=== PATIENT | male | born 1990 | race Caucasian/White ===

== ENCOUNTER 2018-03-31 09:07 | Emergency (ER) | payer OTHER, SELFPAY ==
[2018-03-31 09:15] VITALS: BP 141/91; PULSE 78; RESP 16; TEMP 36.5; O2SAT 100
--- NOTE | 2018-03-31 10:00 | DI.RAD_ITS ---
SYMPTOMS/DIAGNOSIS: LACERATION, PAIN RIGHT THUMB: Soft tissue trauma is noted over the nail bed and tip of the right thumb. There is no evidence of a radiopaque foreign body. There is no evidence of a fracture or dislocation.
--- NOTE | 2018-03-31 10:06 | W.ED.GENAD ---
Discharge Plan Disposition Patient Disposition: [facility] Condition: Improving Discharge Details Chief Complaint: Laceration Clinical Impression: Laceration of right thumb Primary Care Provider: Unknown,Unknown ED Provider: Reno Brownlee Home Meds and New Rx's Prescriptions: Continue sennosides [senna] 8.6 mg Tablet 8.6 mg PO DAILY RF: 0 docusate sodium 100 mg Tablet 100 mg PO DAILY RF: 0 quetiapine 50 mg Tablet 150 mg PO DAILY PRN PRNRF: 0 buprenorphine-naloxone [Suboxone] 8-2 mg Film 1 film SUBLINGUAL DAILY RF: 0 psyllium husk [Metamucil] 0.4 gram Capsule 0.4 g PO DAILY PRN PRNRF: 0 Discharge Instructions Instructions: Laceration (ED) Additional Instructions: Instructions for correctional center: 2 nylon sutures placed. The dressing should remain intact for 48 hours and then may be changed by nurse. Sutures to be removed in 7-8 days Medical Decision Making 27-year-old right-handed male presents with a volar thumb laceration that does not violate the nail bed and does not demonstrate evidence of foreign body or motor/sensory loss. He is referred for x-ray to rule out foreign body or bone injury; this was negative. Wound anesthetized, explored in a bloodless field without evidence of foreign body, irrigated, closed with 2 interrupted nylon sutures. Instructions given to guards. Patient stable follow-up in, and discharged back to correctional center HPI General Date/Time Provider Initiated Documentation: 03/31/18 10:00. Limitations to Documentation: no limitations. Information obtained by: patient. History of Present Illness 27 year old M presents to the emergency department with the chief complaint of Right thumb laceration, tetanus up-to-date, described as moderate, Quality is described as aching, and is localized to the right and upper extremity. Patient reports no radiation. and it has been constant. No relieving factors improve symptom(s), No exacerbating factors reported . 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 Related Data Home Medications Medication Instructions Recorded Confirmed buprenorphine-naloxone [Suboxone] 1 film SUBLINGUAL DAILY 03/31/18 03/31/18 docusate sodium 100 mg PO DAILY 03/31/18 03/31/18 psyllium husk [Metamucil] 0.4 g PO DAILY PRN PRN 03/31/18 03/31/18 quetiapine 150 mg PO DAILY PRN PRN 03/31/18 03/31/18 sennosides [senna] 8.6 mg PO DAILY 03/31/18 03/31/18 Allergies Allergy/AdvReac Type Severity Reaction Status Date / Time No Known Allergies Allergy Unverified 03/31/18 09:20 General Stated Complaint: Laceration DAJA: 4 Review of Systems Review of Systems 8 systems reviewed and otherwise negative PFSH Social History Smoking/Tobacco Use Status: Former Tobacco Use Exam Narrative Exam Narrative: GEN: awake, alert, oriented 3. Pleasant, well groomed, interactive. HEAD: Normocephalic, atraumatic ENT: Mucous membranes moist, oropharynx unremarkable, External ear exam unremarkable EYES: PERRL, EOMI EXT: Full ROM, no edema, no rash right thumb palm R, volar aspect with laceration that originates lateral to the nail. No bone exposed. Sensation and motor intact including two-point discrimination of approximately 1 cm. Neuro: Grossly normal neurologic exam, conversant, interactive. Psych: Speech fluent, thoughts congruent, affect normal Course Vital Signs Temperature 36.5 C 03/31/18 09:15 Pulse 78 03/31/18 09:15 Respiratory Rate 16 03/31/18 09:15 Blood Pressure 141/91 H 03/31/18 09:15 Pulse Oximetry 100 03/31/18 09:15 Temperature 36.5 C 03/31/18 09:15 Temperature Source Temporal Artery Scan 03/31/18 09:15 Pulse 78 03/31/18 09:15 Respiratory Rate 16 03/31/18 09:15 Respiratory Effort Non-Labored 03/31/18 09:18 Blood Pressure 141/91 H 03/31/18 09:15 Blood Pressure Position Sitting 03/31/18 09:15 Pulse Oximetry 100 03/31/18 09:15 Oxygen Delivery Method Room Air 03/31/18 09:15 Oxygen Flow Rate 0 03/31/18 09:15 Pain Level 0 03/31/18 09:15 Procedures Laceration Laceration 1: Site: hand Side (If applicable): right Size (cm): 13.5 Description: linear Depth: simple, single layer Local Anesthetic: Lidocaine 1% and other anesthetic (Digital block with 1%) Amount of anesthesia used (mL): 1 Skin layer closed with: nylon Size (cm): 5-0 Number of sutures: 2 Technique: simple, interrupted
== END 2018-03-31 10:58 | disposition home or self-care (01) ==
PROVIDERS: Emergency Provider Emergency Medicine
DX: S61.011A Laceration without foreign body of right thumb without damage to nail, initial encounter (principal); W31.82XA Contact with other commercial machinery, initial encounter; Y92.140 Kitchen in prison as the place of occurrence of the external cause
CPT/HCPCS: 12001; 73140

== ENCOUNTER 2020-10-15 12:06 | Emergency (ER) | payer SELFPAY ==
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
[2020-10-15 12:32] VITALS: BP 140/88; PULSE 87; RESP 13; TEMP 37.1; O2SAT 99
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
[2020-10-15 13:44] LABS: Abs Immature Grans 0.03 10^3/uL (0.0-0.06); Absolute Eosinophil Count 0.04 10^3/uL (0.0-0.7); Absolute Lymphocyte Count 1.45 10^3/uL (1.2-3.4); Basophils % 1.2; Eosinophils % 0.5; HCT 44.7 % (40.0-50.0); HGB 14.9 g/dL (13.5-17.5); Immature Grans % 0.3; Lymphocytes % 16.8; MCH 29.9 pg (27.0-33.0); MCHC 33.3 % (32.0-36.0); MCV 89.8 fL (80-95); MPV 9.9 fL (8.0-11.0); Monocytes % 8.1; Neutrophils % 73.1; Nucleated RBC 0 %; Platelet Count 203 10^3/uL (130-400); RBC 4.98 10^6/uL (4.36-5.78); RDW 11.9 % (11.8-14.1); RDW-SD 39.3 fL; WBC 8.62 10^3/uL (4.4-10.8)
[2020-10-15] MEDS: Omnipaque 350 MG/ML 100 ML BTL IJ (13:46)
[2020-10-15] MEDS: Normal Saline - Diluent 50 ML VIAL IV (13:47)
[2020-10-15] MEDS: Normal Saline Flush 10 ML SYR IVP ×3 (13:48→15:08)
[2020-10-15 13:51] LABS: ALT 54 U/L (16-63); AST 51 U/L (15-37); Albumin 3.9 g/dL (3.4-5.0); Alkaline Phosphatase 57 U/L (46-116); Anion Gap 7.7 mmol/L (3-11); BUN 8 mg/dL (7-18); Bilirubin, Total 0.5 mg/dL (0.2-1.0); CO2 29.3 mmol/L (21.0-32.0); CREATININE 0.9 mg/dL (0.70-1.30); Calcium 8.9 mg/dL (8.5-10.1); Chloride 102 mmol/L (98-107); Glucose 100 mg/dL (74-106); Potassium 4.2 mmol/L (3.5-5.1); Sodium 139 mmol/L (136-145); Total Protein 7.9 g/dL (6.4-8.2)
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
[2020-10-15] MEDS: Acetaminophen 500 MG TAB 1000 MG PO (13:59)
[2020-10-15 14:00] VITALS: BP 149/105; PULSE 85; RESP 20; O2SAT 99
[2020-10-15] MEDS: HYDROmorphone 2 MG/ML VIAL 1 MG IVP (14:33)
[2020-10-15] MEDS: Ketorolac 30 MG/ML VIAL IVP (15:07)
[2020-10-15] MEDS: HYDROmorphone 2 MG TAB 4 MG PO (15:08)
== END 2020-10-15 15:26 | disposition home or self-care (01) ==
PROVIDERS: Emergency Provider Emergency Medicine
DX: S49.81XA Other specified injuries of right shoulder and upper arm, initial encounter (principal); V19.3XXA Pedal cyclist (driver) (passenger) injured in unspecified nontraffic accident, initial encounter
CPT/HCPCS: 36415; 74177; 80053; 96374; 96375; 99285; 70450; 71260; 72125; 85025; 99283; J1885; J3490